=== PATIENT | female | born 1970 | race Caucasian/White ===

== ENCOUNTER → 2016-04-23 | Outpatient (CLI) | payer BC ==
--- NOTE | 2016-04-24 07:46 | MM ---
Reason for exam: screening (asymptomatic). Last mammogram was performed 1 year and 1 month ago. History: Patient has history of endometrial cancer at age 31. Family history of breast cancer in cousin at age 35. Took hormonal contraceptives for 10 years beginning at age 19. Taking estrogen for 3 years beginning at age 42. Physical Findings: A clinical breast exam by your physician is recommended on an annual basis and results should be correlated with mammographic findings. MG Screening Mammo w CAD Bilateral CC and MLO view(s) were taken. Prior study comparison: April 05, 2015, bilateral MG screening mammo w CAD. March 09, 2014, bilateral MG screening mammo w CAD. There are scattered fibroglandular densities. There is chronic nodularity bilaterally. There is no discrete abnormality. ASSESSMENT: Benign, BI-RAD 2 RECOMMENDATION: Routine screening mammogram of both breasts in 1 year.
== END | disposition home or self-care (01) ==
LOC: RADMAMWWP 10:34
PROVIDERS: ATTEND Obstetrics & Gynecology
DX: Z12.31 Encounter for screening mammogram for malignant neoplasm of breast (principal)

== ENCOUNTER → 2017-05-12 | Outpatient (CLI) | payer BC ==
--- NOTE | 2017-05-13 12:06 | MM ---
Reason for exam: screening (asymptomatic). Last mammogram was performed 1 year and 1 month ago. History: Patient has history of endometrial cancer at age 31. Family history of breast cancer in cousin at age 35. Took hormonal contraceptives for 10 years beginning at age 19. Taking estrogen for 3 years beginning at age 42. Physical Findings: A clinical breast exam by your physician is recommended on an annual basis and results should be correlated with mammographic findings. MG Screening Mammo w CAD Bilateral CC and MLO view(s) were taken. Prior study comparison: April 23, 2016, bilateral MG screening mammo w CAD. April 05, 2015, bilateral MG screening mammo w CAD. There are scattered fibroglandular densities. No suspicious abnormality. No significant changes when compared with prior studies. ASSESSMENT: Negative, BI-RAD 1 RECOMMENDATION: Routine screening mammogram of both breasts in 1 year.
== END | disposition home or self-care (01) ==
LOC: RADMAMWWP 07:32
PROVIDERS: ATTEND Obstetrics & Gynecology
DX: Z12.31 Encounter for screening mammogram for malignant neoplasm of breast (principal)
CPT/HCPCS: 77067

== ENCOUNTER → 2018-05-18 | Outpatient (CLI) | payer BC ==
--- NOTE | 2018-05-20 11:13 | MM ---
Reason for exam: screening (asymptomatic). Last mammogram was performed 1 year ago. History: Patient has history of endometrial cancer at age 31. Family history of breast cancer in cousin at age 35. Took hormonal contraceptives for 10 years beginning at age 19. Taking estrogen for 3 years beginning at age 42. Physical Findings: A clinical breast exam by your physician is recommended on an annual basis and results should be correlated with mammographic findings. MG Screening Mammo w CAD Bilateral CC and MLO view(s) were taken. Prior study comparison: May 12, 2017, bilateral MG screening mammo w CAD. April 23, 2016, bilateral MG screening mammo w CAD. There are scattered fibroglandular densities. No suspicious abnormality. No significant changes when compared with prior studies. ASSESSMENT: Negative, BI-RAD 1 RECOMMENDATION: Routine screening mammogram of both breasts in 1 year.
== END | disposition home or self-care (01) ==
LOC: RADMAMWWP 07:23
PROVIDERS: ATTEND Obstetrics & Gynecology
DX: Z12.31 Encounter for screening mammogram for malignant neoplasm of breast (principal)
CPT/HCPCS: 77067

== ENCOUNTER → 2019-11-17 | Outpatient (CLI) | payer BC ==
--- NOTE | 2019-11-18 08:21 | MM ---
Reason for exam: screening (asymptomatic). Last mammogram was performed 1 year and 6 months ago. History: Patient has history of endometrial cancer at age 31. Family history of breast cancer in cousin at age 35. Took hormonal contraceptives for 10 years beginning at age 19. Taking estrogen for 7 years beginning at age 42. Physical Findings: A clinical breast exam by your physician is recommended on an annual basis and results should be correlated with mammographic findings. MG Screening Mammo w CAD Bilateral CC and MLO view(s) were taken. Prior study comparison: May 18, 2018, bilateral MG screening mammo w CAD. May 12, 2017, bilateral MG screening mammo w CAD. There are scattered fibroglandular densities. There is chronic nodularity bilaterally axilla. There is no discrete abnormality. ASSESSMENT: Benign, BI-RAD 2 RECOMMENDATION: Routine screening mammogram of both breasts in 1 year.
== END | disposition home or self-care (01) ==
LOC: RADMAMWWP 07:35
PROVIDERS: ATTEND Obstetrics & Gynecology
DX: Z12.31 Encounter for screening mammogram for malignant neoplasm of breast (principal)
CPT/HCPCS: 77067

== ENCOUNTER → 2020-09-06 | Outpatient (CLI) | payer BC ==
--- NOTE | 2020-09-06 14:17 | US ---
EXAMINATION TYPE: US extremity nonvasc mass LT DATE OF EXAM: 09/06/2020 COMPARISON: NONE CLINICAL HISTORY: D17.22 Benign lipomatous neoplasm of skin and subc. Palpable noted by patient at le ft upper medial/anterior arm after COVID vaccine approximately 2 to 3 months ago. Left upper arm US findings at palpable: Solid, oval mass is noted at patient's palpable = 1.9 x 2.6 x 0.9cm and is isoechoic to surrounding skin and subcutaneous tissue. This has an estimated maximum de pth of 1 cm. Typically COVID vaccinations are intramuscular, suggesting this is unlikely related to t he vaccination. Small lipoma could be considered. Follow-up can be performed as clinically indicated. IMPRESSION: No suspicious mass. A subcutaneous lipoma may be present. This could be followed as clin ically indicated.
== END | disposition home or self-care (01) ==
LOC: RADUSWWP 12:20
PROVIDERS: ATTEND Family Medicine
DX: D17.22 Benign lipomatous neoplasm of skin and subcutaneous tissue of left arm (principal); Z88.1 Allergy status to other antibiotic agents; Z88.8 Allergy status to other drugs, medicaments and biological substances

== ENCOUNTER → 2021-07-03 | Outpatient (CLI) | payer BC ==
--- NOTE | 2021-07-06 10:02 | MM ---
Reason for Exam: Screening (asymptomatic). Last mammogram was performed 1 year(s) and 7 month(s) ago. Patient History: Menarche at age 11. First Full-Term at age 27. Hysterectomy at age 38. Endometrial cancer, age 31. Currently using Estrogen, beginning at age 42 for 7 years. Hormonal Contraceptives for 10 years from age 19 until age 33. Maternal cousin had breast cancer, age 35. Risk Values: Char 5 year model risk: 1.1%. NCI Lifetime model risk: 9.7%. Film Views: Bilateral CC views were taken. Bilateral MLO views were taken. Prior Study Comparison: 05/12/2017 Bilateral Screening Mammogram, [facility]. 05/18/2018 Bilateral Screening Mammogram, [facility]. 11/17/2019 Bilateral Screening Mammogram, [facility]. Tissue Density: There are scattered fibroglandular densities. Findings: Analyzed By CAD. There is no suspicious group of microcalcifications or new suspicious mass in either breast. Overall Assessment: Benign, BI-RAD 2 Management: Screening Mammogram of both breasts in 1 year. A clinical breast exam by your physician is recommended on an annual basis and results should be correlated with mammographic findings. Electronically signed and approved by: Turner Herrera M.D. Radiologis
== END | disposition home or self-care (01) ==
LOC: RADMAMWWP 16:43
PROVIDERS: ATTEND Obstetrics & Gynecology
DX: Z12.31 Encounter for screening mammogram for malignant neoplasm of breast (principal)
CPT/HCPCS: 77067

== ENCOUNTER → 2022-08-26 | Outpatient (CLI) | payer BC ==
--- NOTE | 2022-08-27 19:45 | MM ---
Reason for Exam: Screening (asymptomatic). Last mammogram was performed 1 year(s) and 2 month(s) ago. Patient History: Menarche at age 11. First Full-Term at age 27. Hysterectomy at age 38. Endometrial cancer, age 31. Currently using Estrogen, beginning at age 42 for 7 years. Hormonal Contraceptives for 10 years from age 19 until age 33. Maternal cousin had breast cancer, age 35. Risk Values: Char 5 year model risk: 1.2%. NCI Lifetime model risk: 9.4%. Prior Study Comparison: 05/18/2018 Bilateral Screening Mammogram, [facility]. 11/17/2019 Bilateral Screening Mammogram, [facility]. 07/03/2021 Bilateral MG screening mammo w CAD, [facility]. Tissue Density: There are scattered fibroglandular densities. Findings: Analyzed By CAD. Chronic bilateral nodularity. There is no suspicious group of microcalcifications or new suspicious mass in either breast. Overall Assessment: Benign, BI-RAD 2 Management: Screening Mammogram of both breasts in 1 year. . Patient should continue monthly self-breast exams. A clinical breast exam by your physician is recommended on an annual basis. This exam should not preclude additional follow-up of suspicious palpable abnormalities. Note on Char scores and lifetime risk: 1. A Char score greater than 3% is considered moderate risk. If this is the case, consider specialist referral to assess eligibility for a risk reducing agent. 2. If overall lifetime risk for the development of breast cancer is 20% or higher, the patient may qualify for future screening with alternating mammogram and breast MRI. Electronically signed and approved by: Aranza Nicholson M.D. Radiologist
== END | disposition home or self-care (01) ==
LOC: RADMAMWWP 07:22
PROVIDERS: ATTEND Family Medicine
DX: Z12.31 Encounter for screening mammogram for malignant neoplasm of breast (principal); Z80.3 Family history of malignant neoplasm of breast
CPT/HCPCS: 77067

== ENCOUNTER → 2022-10-30 | Outpatient (CLI) | payer BC ==
--- NOTE | 2022-10-30 17:28 | P.SLEEP ---
History of Present Illness DATE: 10/30/2022 CONSULTATION/NEW PATIENT EVALUATION HISTORY OF PRESENT ILLNESS/SLEEP-WAKE EVALUATION: 52-year-old lady had been evaluated in the sleep center for possible obstructive sleep apnea hypopnea syndrome. SLEEP SCHEDULE: Usually sleep schedule from 9 PM to 5 AM on weekdays and to 56 AM on weekend. FALLING ASLEEP: Patient sometimes has problems with falling asleep, has TV set in bedroom. DURING SLEEP: Patient usually sleeps on the side position with loud snoring and multiple awakenings from sleep with several episodes of nocturia. Positive history of sweating, heartburn, dry mouth, grinding teeth during the sleep. Positive history of sleep talking. No history of hypnogogical hallucinations, sleep paralysis, or cataplexy. DURING THE DAY/WAKE STATE: In the morning patient wake up tired. [place] sleepiness scale is 6. Patient usually doesn't take naps. PAST MEDICAL HISTORY: Acid reflux, headaches, hyperlipidemia, asthma in the past. PAST SURGICAL HISTORY: , partial hysterectomy, surgery for nasal polyps. MEDICATIONS: Fenofibrate 54 mg once a day, cetirizine 10 mg once a day, o xybutynin 5 mg once a day, omeprazole 20 mg once a day. SOCIAL HISTORY: Positive history of smoking for about 5 years less then half pack a day, quit 1 year ago, alcohol consumption occasional. FAMILY HISTORY: Narcolepsy by her daughter, sleep apnea by her father, hypertension. REVIEW OF SYSTEMS: Loud snoring, multiple awakenings from sleep. No fevers. No double vision. No recent chest pain. No shortness of breath. No abdominal pain. No bleeding episodes. No blood in urine. No seizure episodes. PHYSICAL EXAMINATION: GENERAL: A pleasant patient without any distress. VITAL SIGNS: BP 125/ 92 , HR 67 , RR 16 , weight 251.6 pounds, height 5 foot 6-3/4 inches, body mass index 39.6 . HEENT: PERRLA, EOMI. Evaluation of oropharynx showed tongue protrudes midline, low position of soft palate Mallampati 4. NECK: Supple. No JVD. Thyroid is not palpable. 18 inches in circumference. LUNGS: Clear to percussion and to auscultation. Good air exchange. No wheezing or rhonchi. HEART: S1, S2 regular. No murmurs, gallops or rubs. ABDOMEN: Soft and nontender. Bowel sounds are present. No organomegaly appreciated. EXTREMITIES: No clubbing or cyanosis. RATE MARKER: Awake, alert, and oriented x3. Cranial nerves 2 to 7 intact. There is no fasciculation or atrophy noted. No focal deficits observed. ASSESSMENT: 1. Loud snoring, multiple awakenings from sleep, extremely low position of soft palate Mallampati 4, wide neck 18 inches in circumference. Obstructive sleep apnea hypopnea syndrome. 2. Headaches. 3. Acid reflux. 4. Status post nasal surgery for polyps. 5 status post partial hysterectomy. 6 . Hyperlipidemia. 7. Obesity, BMI 39.6 PLAN: 1. Home sleep apnea test for evaluation of patient's breathing during sleep. 2. Following plan after reading sleep study 3. Preferable position during sleep on the side. 4. No driving if patient feels any sleepiness. Patient is aware of civil and criminal liability for unsafe driving. 5. Sleep hygiene with regular sleep time for at least 7.5-8 hours. 6. Watching and losing weight. Thank you very much for referring this patient for consultation. Sincerely, David López MD, PhD, FAASM. Diplomat of [place] [employer], Sleep Medicine Board by [place] [employer] [place] [employer] Genetic Coordinator of [facility] [place] [facility] - Sleep Note Sleep Note: Temperature: Pulse Rate: Respiratory Rate: Blood Pressure: SpO2: Height: Weight: BMI: Neck Circumference:
== END ==
LOC: 3 N SLEEP 14:54
PROVIDERS: ATTEND Internal Medicine
DX: G47.33 Obstructive sleep apnea (adult) (pediatric) (principal); R51.9 Headache, unspecified; K21.9 Gastro-esophageal reflux disease without esophagitis; E66.9 Obesity, unspecified; E78.5 Hyperlipidemia, unspecified; Z98.890 Other specified postprocedural states; Z68.39 Body mass index [BMI] 39.0-39.9, adult; Z48.813 Encounter for surgical aftercare following surgery on the respiratory system; Z90.711 Acquired absence of uterus with remaining cervical stump; Z87.891 Personal history of nicotine dependence
CPT/HCPCS: 99211

== ENCOUNTER → 2022-11-13 | Outpatient (CLI) | payer BC | LOC: 3 N SLEEP 10:43 | PROVIDERS: ATTEND Internal Medicine | DX: G47.33 Obstructive sleep apnea (adult) (pediatric) (principal) ==

== ENCOUNTER → 2023-09-26 | Outpatient (CLI) | payer BC ==
--- NOTE | 2023-10-16 21:02 | MM ---
Reason for Exam: Screening (asymptomatic). Last mammogram was performed 1 year(s) and 1 month(s) ago. Patient History: Menarche at age 11. First Full-Term at age 27. Hysterectomy at age 38. Endometrial cancer, age 31. Currently using Estrogen, beginning at age 42 for 7 years. Hormonal Contraceptives for 10 years from age 19 until age 33. Maternal cousin had breast cancer, age 35. Risk Values: Char 5 year model risk: 1.3%. NCI Lifetime model risk: 9.3%. Prior Study Comparison: 11/17/2019 Bilateral Screening Mammogram, [facility]. 07/03/2021 Bilateral MG screening mammo w CAD, [facility]. 08/26/2022 Bilateral MG screening mammo w CAD, [facility]. Tissue Density: There are scattered areas of fibroglandular density. Findings: Analyzed By CAD. Chronic bilateral nodularity. There is no suspicious group of microcalcifications or new suspicious mass in either breast. Overall Assessment: Benign, BI-RAD 2 Management: Screening Mammogram of both breasts in 1 year. . Patient should continue monthly self-breast exams. A clinical breast exam by your physician is recommended on an annual basis. This exam should not preclude additional follow-up of suspicious palpable abnormalities. Note on Char scores and lifetime risk: 1. A Char score greater than 3% is considered moderate risk. If this is the case, consider specialist referral to assess eligibility for a risk reducing agent. 2. If overall lifetime risk for the development of breast cancer is 20% or higher, the patient may qualify for future screening with alternating mammogram and breast MRI. Electronically signed and approved by: Aranza Nicholson M.D. Radiologist
== END | disposition home or self-care (01) ==
LOC: RADMAMWWP 11:19
PROVIDERS: ATTEND Nurse Practitioner
DX: Z12.31 Encounter for screening mammogram for malignant neoplasm of breast (principal); R92.333 Mammographic heterogeneous density, bilateral breasts; Z80.3 Family history of malignant neoplasm of breast
CPT/HCPCS: 77063; 77067

== ENCOUNTER → 2024-09-03 | Outpatient (CLI) | payer BC | END | disposition home or self-care (01) | LOC: RADMAMWWP 07:20 | PROVIDERS: ATTEND Obstetrics & Gynecology | DX: Z53.9 Procedure and treatment not carried out, unspecified reason (principal) ==